=== PATIENT | female | born 1995 | race Hispanic/Latino ===

== ENCOUNTER 2023-08-09 01:01 | Emergency (ER) | payer SELFPAY ==
[2023-08-09] MEDS ORDERED: Ondansetron PF 4 MG/2 ML Vial ONE (01:48)
[2023-08-09] MEDS ORDERED: Ketorolac Tromethamine 30 MG (1 mL) VIAL ONE (01:48)
[2023-08-09 01:58] LABS: SARS-CoV-2 NAA Rapid Test Not Detected (NotDetected)
== END 2023-08-09 03:26 | disposition home or self-care (01) ==
LOC: ERS 01:01
DX: J10.1 Influenza due to other identified influenza virus with other respiratory manifestations (principal)
CPT/HCPCS: 96361; 96374; 96375; J1885; J2405